=== PATIENT | male | born 1950 | race Caucasian/White ===

== ENCOUNTER 2021-08-22 14:20 | Outpatient (CLI) | payer MEDICARE, SELFPAY ==
--- NOTE | 2021-08-22 14:35 | CT_ITS ---
STUDY: CT FACIAL BONES WITHOUT CONTRAST REASON FOR EXAM: Male, 71 years old. SINUSITIS RADIATION DOSAGE (If Supplied By Facility): CTDIvol = ( 28.14 ) mGy, DLP = ( 2548.12 ) mGycm TECHNIQUE: The patient was scanned in a multi detector CT scanner. Sagittal and coronal images were reconstructed. Individualized dose optimization techniques were used for this CT. COMPARISON: None. FINDINGS: Normal soft tissue structures. Normal orbital ma and orbital contents. Normal nasal bones and anterior nasal spine. There is degenerative arthrosis of the right temporomandibular articulation. Incidental note of multilevel degenerative changes of the cervical spine, including moderately large, bridging posterior endplate osteophytes at C4-5 and C6-7. There is some chronic erosive change along the right anterior margin of the odontoid process and adjacent right anterior C1 neural arch. There is no demonstrated fracture. The ostiomeatal portions of the bilateral maxillary sinuses are relatively large, and portions of the floors of the bilateral ethmoid sinuses are absent, consistent with postsurgical change. There is moderate to moderately severe mucoperiosteal thickening in the right maxillary sinus, as well as minimal mucoperiosteal thickening and a trace fluid level in the left maxillary antrum. Minor mucosal thickening along the right superior turbinate. The nasal passages are clear. Frontal and sphenoid sinuses are clear. There is mild medial periosteal thickening or fluid in the inferomedial recess of the right mastoid sinus. CT/Sinus/Facial Bone IMPRESSION: 1. Probable postsurgical changes involving the medial ma of the bilateral maxillary sinuses and floors of the ethmoid sinuses. 2. 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 3. 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 4. Multilevel degenerative changes of the spine cervical spine, as described, including chronic erosive changes at the anterior atlantoaxial articulation. Electronically Signed: Reynold Domingo MD at 9:46 EDT ,
== END 2021-08-22 23:59 | disposition home or self-care (01) ==
PROVIDERS: PCP Family Medicine; Referring Provider Otolaryngology; Visit Provider Otolaryngology
DX: J32.8 Other chronic sinusitis (principal)
CPT/HCPCS: 70486

== ENCOUNTER 2024-08-27 07:49 | Emergency (ER) | payer MEDICARE, SELFPAY ==
[2024-08-27 07:50] VITALS: BP 178/92; PULSE 73; RESP 20; TEMP 36.9; O2SAT 95; BMI 46.3
--- NOTE | 2024-08-27 07:57 | RAD_ITS ---
PROCEDURE: SHOULDER MIN 2 VIEWS 08/27/2024 REASON FOR EXAM: FALL W/ R-SHOULDER INJURY TECHNIQUE: 5 view(s) of the right shoulder COMPARISON: None. FINDINGS: Bones: Acute right humeral surgical neck fracture (two part humeral head fracture), with mild angulation. Joints: No intra-articular fracture extension. Arthrosis of the right acromioclavicular joint. Soft tissues: Soft tissue swelling. RAD/Shoulder min 2 Views IMPRESSION: Acute fracture of the right humeral surgical neck. Reading Location: [facility]
--- NOTE | 2024-08-27 07:58 | EDS_ITS ---
HPI HPI - Fall History of Present Illness Chief Complaint: Fall Informant: patient Occured/Mechanism Occurred: Today and Hours (Fell while getting out of bed around 7 AM this morning about 1 hour ago.) Mechanism/Context: Yes same level fall Usually ambulates: Without assistance Pain/Injury Pain Location: upper extremity (Right shoulder injury.) Quality of Pain: Sharp Current Severity: Mild Maximum Severity: Mild Associated Symptoms Associated Symptoms: Negative for Parasthesias, Weakness, Loss of function, Inability to ambulate, Loss of consciousness or Amnesia Length of loss of consciousness: No LOC. Narrative Narrative: 74-year-old male was getting out of bed this morning and is feet get caught in his blankets. He fell injuring his right shoulder on the wooden floor. Denies striking his head. No LOC. No head or neck pain. He is not on any blood thinners besides a daily aspirin. Patient is actually [id number]. He is never had surgery to his right arm or shoulder. Denies any other complaints or other injuries. Denies any back or chest pain. Prior similar symptoms: No Recent Illness/Hospitalization: No PFSH PFSH Medical History Hyperlipemia HTN (hypertension) Kidney stones Home Medications ?Medication ?Instructions ?Recorded ?Last Taken ?Type hydrocodone-acetaminophen 5-325mg 1 - 2 tab PO Q6H PRN PRN Pain #8 05/31/17 Unknown Rx 5mg-325mg tabs tramadol 25 mg tablet 25 mg PO Q6H PRN pain 4 days #14 08/27/24 Unknown Rx tabs Allergy/AdvReac Type Severity Reaction Status Date / Time Milk Containing Products Allergy Intermediate NEEDS Verified 08/27/24 07:53 (Dairy) FOLLOW-UP egg AdvReac NEEDS Verified 08/27/24 07:53 FOLLOW-UP Social History Smoking Status: Never smoker ROS ROS ED ROS Narrative Denies recent illness. Constitutional Constitutional ED: Denies chills or fever(s) Eyes Eyes: Denies blurry vision ENT ENT ED: Denies ear pain Cardiovascular Cardiovascular: Denies chest pain Respiratory/Chest Respiratory/Chest: Denies cough Genitourinary Genitourinary ED: Denies dysuria Musculoskeletal Musculoskeletal: Denies arthralgias, back pain or neck pain Integumentary Denies abscess Neurologic Neurologic: Denies headache(s) Psychiatric Psychiatric: Denies anxiety Endocrine Endocrinology: Denies polydipsia Hematologic/Lymphatic Hematologic/Lymphatic: Denies easy bleeding, easy bruising or lymphadenopathy Allergic/Immunologic Allergic/Immunologic ED: Denies mouth swelling, tongue swelling or urticaria EXAM Physical Exam Narrative Exam Narrative: 74-year-old male sitting upright in bed. Paramedics put a sling on his right arm. Vital signs are stable. He is afebrile. His pulse ox is 95% on room air no hypoxia. He is accompanied by his . H EENT exam pupils round reactive light. Moist mucous membranes. There is no signs of trauma nor tenderness to his face or scalp. No hematoma or lacerations. Neck and trachea are nontender. No lymphadenopathy. No C-spine tenderness. Back and spine nontender. No bruising. Lungs clear to auscultation bilaterally. Heart regular rhythm no murmur. Chest wall and ribs nontender. No crepitance or subcu air. No bruising. Abdomen soft and nontender. No peritoneal signs. No bruising. Pelvic girdle intact. Left upper extremity both lower extremities he has normal therapeutic recreation director strength. Normal range of motion of the left upper extremity. Lower extremities are nontender. No deformity or shortening. Normal dorsi plantarflexion. His right arm is in a sling. The right shoulder is tenderness to palpation diffusely. There is no bruising or swelling. The distal humerus, right elbow, right forearm, right wrist and right hand are nontender. No deformity. No swelling. 5 out of 5 therapeutic recreation director strength. Normal sensation his right hand. Normal radial pulse. Neurologically he is awake and alert. Answering questions following commands. No focal motor deficits. Const Vital Signs: 08/27/24 07:50 08/27/24 07:55 Temperature 98.5 F Temperature Source Oral Pulse Rate 73 Respiratory Rate 20 H Respiratory Effort Normal Blood Pressure 178/92 H Blood Pressure Mean 120 Pulse Ox 95 Oxygen Delivery Method Room Air Room Air Positive well nourished and well developed; Negative for cachectic, contractures or unkempt General Appearance ED: well developed and NAD; Negative for unkempt, cachectic or contractures Nutritional Appearance: Negative for cachectic HEENT Reports normocephalic atraumatic; Negative for trauma, contusion, hematoma or tenderness Eyes PERRL and EOMs intact bilaterally Neck full ROM, no lymphadenopathy and supple Chest Wall inspection of chest normal and palpation of chest normal Resp normal respiratory effort, no retractions and clear to auscultation bilaterally Cardio regular rate, regular rhythm, S1 normal heart sound, S2 normal heart sound and no murmurs Rate: Negative for bradycardia or tachycardic Rhythm: Negative for abnormal rhythm Bruits: Negative for other GI non-tender, non-distended and no masses Palpation: soft; Negative for guarding or rebound tenderness present Back/Spine no CVA tenderness General Back: Negative for CVA tenderness Cervical Spine: Negative for cervical spine tenderness Lumbar Spine / Lower Back: Negative for lumbar spinal tenderness or paraspinal muscle tenderness Neuro oriented x3, CN's II-XII intact bilaterally, moves all extremities, no focal m otor deficits and no sensory deficits noted Yale Coma Scale: document GCS findings Spontaneous Obeys Commands Oriented 15 Sensorium / Orientation: alert, oriented to person, oriented to place and oriented to time; Negative for orientation impaired, confused, lethargic or stuporous Motor Exam: strength 5/5 throughout Psych mental status grossly normal and thought process normal Appearance: Negative for unkempt Skin Lesions: no lesions Rashes: no rashes Trauma: Negative for abrasion or laceration MDM MDM MDM Narrative Medical decision making narrative: 74-year-old male fell getting out of bed this morning. He is left-hand dominant. He injured his right shoulder. He was offered but did not wear anything for pain. X-ray of his right shoulder being obtained. Differential would include contusion versus fracture versus dislocation. Clinically I do not think it is dislocated. Repeat exam around 8:25 AM. Patient was instructed of his right humeral head fracture. Placed in a sling. Written for [employer] for pain. He already has an established relationship with with orthopedics and he will call them Wednesday for follow-up. I went over all instructions with both he and his family in the room. They are comfortable with the plan. History & Record Review Discussion w/independent historian: Patient and Family Additional record(s) reviewed:: Prior inpatient record, Prior outpatient record, Prior ED visit and Prior labs Radiography Diagnostic Testing: Clinical Impression(s) from Imaging Studies Shoulder X-Ray 08/27/24 07:57 IMPRESSION: Acute fracture of the right humeral surgical neck. Reading Location: [facility] Right shoulder x-ray, multiple views, interpreted by myself shows humeral head fracture. Discharge Plan Triage Chief Complaint: Fall ED Provider: Semaj Marshall Dx/Rx/DC Orders Clinical Impression: Fall, Fracture of head of humerus Instructions: ED Fracture, Shoulder Prescriptions: New tramadol 25 mg tablet 25 mg PO Q6H PRN (Reason: pain) 4 Days Qty: 14 0RF No Action hydrocodone-acetaminophen 1 TABLET tablet 1 - 2 tab PO Q6H PRN PRN (Reason: Pain) Qty: 8 0RF Primary Care Provider: Rigo Little Referrals: Gigi Johnson MD [Non-Staff] - Alexey Youngblood DO [Med Staff - Active Staff] - As soon as possible Activity Restrictions/Additional Instructions: Sling to immobilize your shoulder. You can take it off in the shower. You have a fracture or broken right humeral head. Call was to orthopedics, Dr. Youngblood or Dr. Maximiliano Winter, on Wednesday tell them you were seen in the ER on Wednesday and you have a fractured or broken humeral head. Or right shoulder. Those should be able to get you in this week for further evaluation. Print Language: Israeli Disposition Disposition: Home, Self Care
[2024-08-27] MEDS: traMADol 50 MG Tablet PO (08:42)
[2024-08-27 08:52] VITALS: BP 181/84; PULSE 73; RESP 18; TEMP 36.9; O2SAT 96
== END 2024-08-27 08:55 | disposition home or self-care (01) ==
LOC: ED 08:31
PROVIDERS: Emergency Provider Emergency Medicine; Visit Provider Emergency Medicine
DX: S42.211A Unspecified displaced fracture of surgical neck of right humerus, initial encounter for closed fracture (principal); W19.XXXA Unspecified fall, initial encounter
CPT/HCPCS: 73030; 99284